=== PATIENT | male | born 1995 | race Caucasian/White ===

== ENCOUNTER 2017-01-06 19:14 | Emergency (ER) | payer SELFPAY ==
[~2017-01-06] VITALS: Ht 172.7 cm; Wt 63.0 kg
[2017-01-06 19:15] VITALS: BP_SYST 100
[2017-01-06 20:35] VITALS: BP_SYST 100
== END 2017-01-06 20:35 | disposition home or self-care (01) ==
LOC: SED 19:14
DX: J20.9 Acute bronchitis, unspecified (principal)
CPT/HCPCS: 99283

== ENCOUNTER 2024-03-06 12:29 | Emergency (ER) | payer MEDICAID ==
[~2024-03-06] VITALS: Ht 157.5 cm; Wt 68.0 kg
[2024-03-06 12:33] VITALS: BP_SYST 135; PULSE 85; RESP 22; TEMP 98.3; O2SAT 98
[2024-03-06] MEDS ORDERED: CEPH250C PO (12:48)
[2024-03-06] MEDS ORDERED: IBUP-1971 PO (12:48)
[2024-03-06] MEDS ORDERED: CORTEARS RIGHT EAR (12:48)
== END 2024-03-06 13:07 | disposition home or self-care (01) ==
LOC: SED 12:29
DX: H60.92 Unspecified otitis externa, left ear (principal); R20.2 Paresthesia of skin
CPT/HCPCS: 99283